=== PATIENT | male | born 1955 | race Caucasian/White ===

== ENCOUNTER → 2024-11-13 13:44 | Outpatient (REF) | payer OTHER, SELFPAY | LOC: HWRCS 13:44 | PROVIDERS: ATTENDING PHYSICIAN Internal Medicine Cardiovascular Disease; FAMILY PHYSICIAN Nurse Practitioner Family | DX: I10 Essential (primary) hypertension (principal); I77.810 Thoracic aortic ectasia | CPT/HCPCS: 93306 ==